=== PATIENT | male | born 1995 | race Caucasian/White ===

== ENCOUNTER 2019-09-20 11:35 | Day surgery (SDC) | payer OTHER ==
[~2019-09-20] VITALS: Ht 182.9 cm; Wt 86.5 kg
[2019-09-20 11:56] VITALS: BP 125/71; PULSE 93; TEMP 98.4
[2019-09-20] MEDS ORDERED: CIPRO 500MG TA500 MG PO (12:12)
[2019-09-20] MEDS ORDERED: FLAGYL 250250 MG/TAB PO (12:12)
[2019-09-20] MEDS ORDERED: TYLENOL 325MG325 MG PO (12:12)
[2019-09-20] MEDS ORDERED: NAPROSYN500 MG PO (12:13)
[2019-09-20 14:20] VITALS: BP 120/75; PULSE 83; TEMP 97.8
--- NOTE | 2019-09-20 14:20 | NUR ---
Pt came back to room awake, alert, and oriented. Immediately requested food, and juice and blueberry muffin brought. VSS and WNL on RA
[2019-09-20 14:35] VITALS: BP 110/86; PULSE 82
--- NOTE | 2019-09-20 14:35 | NUR ---
Patient successfully finished muffin and cup of juice without c/o n/v and requesting more food. Educated pt that eating too much food too fast could cause n/v. Pt agrees but said he wanted more food. Muffin brought per request. VSS and WNL on RA. Call light within reach.
[2019-09-20 14:50] VITALS: BP 118/72; PULSE 82
--- NOTE | 2019-09-20 14:50 | NUR ---
Pt resting comfortably in bed and successfully finished 2 muffins and 2 cups of juice without n/v. Dr. Ordaz at bedside reviewing procedure and plan of care with patient and . VSS and WNL on RA. Pt denies pain, and says he is ready to get dressed and go home.
[2019-09-20 15:00] VITALS: BP 120/69; PULSE 72
== END 2019-09-20 15:03 | disposition home or self-care (01) ==
LOC: SDCO 11:35
DX: D12.0 Benign neoplasm of cecum (principal); K29.50 Unspecified chronic gastritis without bleeding; R19.7 Diarrhea, unspecified; K25.9 Gastric ulcer, unspecified as acute or chronic, without hemorrhage or perforation; K21.0 Gastro-esophageal reflux disease with esophagitis; Z83.79 Family history of other diseases of the digestive system; Z79.899 Other long term (current) drug therapy; F17.210 Nicotine dependence, cigarettes, uncomplicated
CPT/HCPCS: J2250; J2405; J3010; J7030